=== PATIENT | male | born 1990 | race Caucasian/White ===

== ENCOUNTER 2017-07-25 23:23 | Emergency (ER) | payer SELFPAY ==
[~2017-07-25] VITALS: Ht 188 cm; Wt 89.2 kg
[2017-07-26 01:49] LABS: HEMATOCRIT 45.7 % (38.0-50.0); HEMOGLOBIN 15.5 G/DL (12.5-16.6); MCH 30.8 PG (29.0-34.0); MCHC 33.9 G/DL (30.0-36.0); MCV 90.9 FL (86-99); PLATELET COUNT 221 K/uL (156-360); RBC DIS.WIDTH-CV 12.9 % (11.8-14.6); RBC DIS.WIDTH-SD 42.8 % (39-53); RED BLOOD COUNT 5.03 M/uL (4.00-5.50)
[2017-07-26 02:00] LABS: CHLORIDE 98 mEq/L (99-109); POTASSIUM 5.1 mEq/L (3.7-5.4); SODIUM 135 mEq/L (136-147)
[2017-07-26 02:01] LABS: ALBUMIN 4.7 g/dL (3.2-4.8)
[2017-07-26 02:04] LABS: GLUCOSE 125 mg/dL (70-99); TOTAL PROTEIN 8.3 g/dL (6.4-8.3)
[2017-07-26 02:06] LABS: TOTAL BILIRUBIN 1.1 mg/dL (0.0-1.0)
[2017-07-26 02:07] LABS: ALKALINE PHOSPHATASE 60 IU/L (3-129)
[2017-07-26 02:08] LABS: CREATININE 1.3 mg/dL (0.6-1.3)
[2017-07-26 02:09] LABS: AST (GOT) 37 IU/L (2-34); GFR ESTIMATE (CALCULATED) > 59 mL/min/ (58.99-99999); UREA NITROGEN (BUN) 17 mg/dL (9-23)
[2017-07-26 02:11] LABS: ALT (GPT) 28 IU/L (3-49)
[2017-07-26 02:14] LABS: MONOSPOT (MONONUCLEOSIS SEROL) NEGATIVE
[2017-07-26] MEDS ORDERED: MEDROL DOSEPAK4 MG PO (03:48)
[2017-07-26] MEDS ORDERED: ZITHROMAX Z-PA250 MG PO (03:48)
[2017-07-26] MEDS ORDERED: TYLENOL WITH C1 EACH PO (03:48)
[2017-07-26 04:12] VITALS: BP 138/81
== END 2017-07-26 04:13 | disposition home or self-care (01) ==
LOC: EME 23:23
PROVIDERS: Physician Assistant
DX: J03.90 Acute tonsillitis, unspecified (principal)
CPT/HCPCS: 80053; 85027; 86308; 87651 90; 99281; 99285; J1100; J1885; J7030

== ENCOUNTER 2017-07-28 07:59 | Emergency (ER) | payer SELFPAY ==
[~2017-07-28] VITALS: Ht 188 cm; Wt 91.4 kg
[~2017-07-28 07:59] MED LIST: MEDROL DOSEPAK4 MG PO; TYLENOL WITH C1 EACH PO; ZITHROMAX Z-PA250 MG PO
[2017-07-28 10:14] LABS: HEMATOCRIT 40.4 % (38.0-50.0); HEMOGLOBIN 13.9 G/DL (12.5-16.6); MCH 30.8 PG (29.0-34.0); MCHC 34.4 G/DL (30.0-36.0); MCV 89.6 FL (86-99); PLATELET COUNT 227 K/uL (156-360); RBC DIS.WIDTH-CV 12.8 % (11.8-14.6); RBC DIS.WIDTH-SD 42.3 % (39-53); RED BLOOD COUNT 4.51 M/uL (4.00-5.50); WHITE BLOOD COUNT 12.5 K/uL (4.1-10.2)
[2017-07-28 10:30] LABS: CHLORIDE 99 mEq/L (99-109); SODIUM 134 mEq/L (136-147)
[2017-07-28 10:32] LABS: GLUCOSE 118 mg/dL (70-99)
[2017-07-28 10:33] LABS: TOTAL PROTEIN 7.1 g/dL (6.4-8.3)
[2017-07-28 10:34] LABS: POTASSIUM 3.6 mEq/L (3.7-5.4)
[2017-07-28 10:36] LABS: ALKALINE PHOSPHATASE 55 IU/L (3-129); GFR ESTIMATE (CALCULATED) > 59 mL/min/ (58.99-99999)
[2017-07-28 10:37] LABS: UREA NITROGEN (BUN) 15 mg/dL (9-23)
[2017-07-28 10:38] LABS: AST (GOT) 30 IU/L (2-34)
[2017-07-28 10:39] LABS: ALT (GPT) 24 IU/L (3-49); TOTAL BILIRUBIN 0.7 mg/dL (0.0-1.0)
[2017-07-28] MEDS ORDERED: MOTRIN800 MG PO (11:39)
[2017-07-28 11:59] VITALS: BP 132/80
== END 2017-07-28 12:00 | disposition home or self-care (01) ==
LOC: EME 07:59
PROVIDERS: Nurse Practitioner Family
DX: J03.80 Acute tonsillitis due to other specified organisms (principal); B96.89 Other specified bacterial agents as the cause of diseases classified elsewhere; T36.96XA Underdosing of unspecified systemic antibiotic, initial encounter; T38.0X6A Underdosing of glucocorticoids and synthetic analogues, initial encounter; Z91.128 Patient's intentional underdosing of medication regimen for other reason; Z88.5 Allergy status to narcotic agent
CPT/HCPCS: 80053; 85027; 86308; 87651 90; 99281; 99285; J0561; J1100

== ENCOUNTER 2017-07-29 16:19 | Emergency (ER) | payer SELFPAY ==
[~2017-07-29] VITALS: Ht 188 cm; Wt 89.4 kg
[~2017-07-29 16:19] MED LIST changes: +MOTRIN800 MG PO
[2017-07-29 16:27] VITALS: BP 139/82
== END 2017-07-29 18:27 | disposition left against medical advice (07) ==
LOC: EME 16:19
DX: R07.0 Pain in throat (principal); R50.9 Fever, unspecified; Z53.21 Procedure and treatment not carried out due to patient leaving prior to being seen by health care provider
CPT/HCPCS: 80048; 85027